=== PATIENT | female | born 1955 | race American Indian/Alaskan Native ===

== ENCOUNTER 2017-11-06 17:32 | Emergency (ER) | payer OTHER ==
[2017-11-06 18:07] VITALS: BP 134/57
[2017-11-06] MEDS ORDERED: TORADOL IM ONE (22:41)
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
== END 2017-11-06 23:55 | disposition home or self-care (01) ==
LOC: ED 17:32
DX: M54.5 Low back pain (principal); F17.200 Nicotine dependence, unspecified, uncomplicated; Z90.711 Acquired absence of uterus with remaining cervical stump; V43.52XA Car driver injured in collision with other type car in traffic accident, initial encounter; Y93.89 Activity, other specified; Y99.8 Other external cause status; Y92.488 Other paved roadways as the place of occurrence of the external cause
CPT/HCPCS: 72100; 96372; 99283; J1885

== ENCOUNTER 2020-07-19 21:21 | Emergency (ER) | payer OTHER ==
[2020-07-19] MEDS ORDERED: ACETAMINOPHEN 500 MG TAB PO ONE (21:26)
[2020-07-19 21:30] VITALS: BP 91/74
--- NOTE | 2020-07-19 21:32 | Emergency Department Report ---
ED Upper Extremity Inj HPI - General Stated Complaint: LEFT RING FINGER INJURY Source: patient Limitations: No Limitations - History of Present Illness Initial Comments: Patient is a 64-year-old -N[place]alese female with no past medical history presents to the ED with complaint of acute onset persistent severe left ring finger pain and swelling after she accidentally hit her left ring finger with a hammer when trying to repair a cabinet in her kitchen about 8 hours ago. Patient states that she thought the injury was not significant but the pain and swelling got worse subsequently. Patient states that she is unable to perform any active range of motion with the left ring finger because of severe pain. Patient denies dizziness, syncope, chest pain, shortness of breath, fall, heavy lifting, numbness and tingling or weakness of left hand or left ring finger. MD Complaint: Injury to:: left, hand (left hand, left ring finger pain swelling and pain), finger (left ring finger pain and swelling) -: Sudden, hour(s) (8) Other Extremity Injury: Fingers: Left (ring finger pain and swelling), Hand: Left (left hand pain and swelling) Other Injuries: none Handedness: right Place: home Severity scale (0 -10): 7 Improves With: none Worsens With: movement of extremity (left hand and ring finger) Context: direct blow, injury Associated Symptoms: denies other symptoms. denies: weakness, numbness, neck pain, nausea/vomiting, heard/felt popping sensat - Related Data Previous Rx's Medication Instructions Recorded Last Taken Type HYDROcodone/APAP 10-325 [Declo 1 each PO Q6HR PRN #20 tablet 12/15/13 Unknown Rx 10-325 mg TAB] HYDROcodone/APAP 5-325 [Declo 1 each PO Q6HR PRN #12 tablet 07/19/20 Unknown Rx 5/325] methOCARBAMOL [Robaxin TAB] 750 mg PO Q12H PRN #30 tablet 07/19/20 Unknown Rx Allergies Allergy/AdvReac Type Severity Reaction Status Date / Time aspirin Allergy Vomiting Verified 07/19/20 21:29 ED Review of Systems ROS: Stated complaint: LEFT RING FINGER INJURY Other details as noted in HPI Constitutional: denies: chills, fever Eyes: denies: eye pain, eye discharge, vision change ENT: denies: ear pain, throat pain Respiratory: denies: cough, shortness of breath, wheezing Cardiovascular: denies: chest pain, palpitations Endocrine: no symptoms reported Gastrointestinal: denies: abdominal pain, nausea, diarrhea Genitourinary: denies: urgency, dysuria, discharge Musculoskeletal: joint swelling (left ring finger pain and swelling), arthralgia (left hand and ring finger pain). denies: back pain Skin: denies: rash, lesions Neurological: denies: headache, weakness, paresthesias Psychiatric: denies: anxiety, depression Hematological/Lymphatic: denies: easy bleeding, easy bruising ED Past Medical Hx - Surgical History Additional Surgical History: partial hysterectomy, Right and left foot - Social History Smoking Status: Current Every Day Smoker Substance Use Type: Alcohol, Prescribed - Medications Home Medications: Home Medications Medication Instructions Recorded Confirmed Last Taken Type HYDROcodone/APAP 10-325 [Declo 1 each PO Q6HR PRN #20 tablet 12/15/13 Unknown Rx 10-325 mg TAB] HYDROcodone/APAP 5-325 [Declo 1 each PO Q6HR PRN #12 tablet 07/19/20 Unknown Rx 5/325] methOCARBAMOL [Robaxin TAB] 750 mg PO Q12H PRN #30 tablet 07/19/20 Unknown Rx ED Physical Exam - General General appearance: alert, in no apparent distress - Head Head exam: Present: atraumatic, normocephalic, normal inspection - Eye Eye exam: Present: normal appearance, PERRL, EOMI - ENT ENT exam: Present: normal exam, normal orophraynx, mucous membranes moist, TM's normal bilaterally, normal external ear exam - Neck Neck exam: Present: normal inspection, full ROM - Respiratory Respiratory exam: Present: normal lung sounds bilaterally. Absent: respiratory distress, wheezes, rales, rhonchi, chest wall tenderness, accessory muscle use, decreased breath sounds, other - Cardiovascular Cardiovascular Exam: Present: regular rate, normal rhythm, normal heart sounds. Absent: systolic murmur, diastolic murmur, rubs, gallop - GI/Abdominal GI/Abdominal exam: Present: soft, normal bowel sounds. Absent: distended, tenderness, guarding, rebound, hyperactive bowel sounds, hypoactive bowel sounds, organomegaly, mass - Extremities Exam Extremities exam: Present: normal inspection, full ROM (limited ROM of left ring finger due to pain and mild swelling), tenderness (Palpable left ring finger tenderness, mild swelling and limited ROM due to pain), normal capillary refill, joint swelling (left ringf finger). Absent: pedal edema, calf tenderness - Back Exam Back exam: Present: normal inspection, full ROM. Absent: tenderness, CVA tenderness (R), CVA tenderness (L), muscle spasm, paraspinal tenderness, vertebral tenderness - Neurological Exam Neurological exam: Present: alert, oriented X3, CN II-XII intact, normal gait, reflexes normal - Psychiatric Psychiatric exam: Present: normal affect, normal mood - Skin Skin exam: Present: warm, dry, intact, normal color. Absent: rash ED Course Vital Signs 07/19/20 21:28 Temperature 98.7 F Pulse Rate 74 Respiratory 18 Rate Blood Pressure 91/74 O2 Sat by Pulse 100 Oximetry ED Medical Decision Making - Radiology Data Radiology results: report reviewed, image reviewed Findings [facility] [address] [place] [address] XRay Report Signed Patient: AUTUMN GUSMAN MR#: [id number] 0008 : 1955 Acct:[id number] Age/Sex: 64 / F ADM Date: 07/19/20 Loc: ED Attending Dr: Ordering Physician: CHERRY ESPINOZA Date of Service: 07/19/20 Procedure(s): XR hand 3+V LT Accession Number(s): [id number] cc: CHERRY ESPINOZA Fluoro Time In Minutes: LEFT HAND 3 VIEW(S) INDICATION / CLINICAL INFORMATION: Left ring finger injury. COMPARISON: None available. FINDINGS: BONES / JOINT(S): There is a nondisplaced fracture of the ring finger middle phalanx along the ulnar aspect. No significant arthritis. SOFT TISSUES: Soft tissue edema about the ring finger is noted. ADDITIONAL FINDINGS: None. Signer Name: Lulu Hobbs MD Signed: 07/19/2020 10:08 PM Workstation Name: [id number] Transcribed By: SS Dictated By: LULU HOBBS Electronically Authenticated By: LULU HOBBS Signed Date/Time: 07/19/202207 DD/ 05 TD/TT: - Medical Decision Making This is a 64-year-old -N[place]alese female with no past medical history presents to the ED with complaint of acute onset persistent severe left ring finger pain and swelling after she accidentally hit her left ring finger with a hammer when trying to repair a cabinet in her kitchen about 8 hours ago. Patient states that she thought the injury was not significant but the pain and swelling got worse subsequently. Patient states that she is unable to perform any active range of motion with the left ring finger because of severe pain. In the ED, patient is alert and oriented x3 and is not in distress with normal vital signs. Patient was treated for pain in the ED and left hand x-ray showed a nondisplaced fracture of the ring finger middle phalanx along the ulnar aspect. No significant arthritis. There are however soft tissue edema about the ring finger is noted. The left ring finger was splinted with a finger splint, and the patient will discharge home on pain medications and given a referral to the orthopedic surgeon on-call Dr. Wolf for follow-up. Patient was advised to contact Dr. Wolf's office first thing in the morning on Saturday, July 19, 2020 to schedule a follow-up appointment. Patient was advised return to the ED immediately if symptoms get worse. - Differential Diagnosis Finger fracture; hand contusion; hand sprain; finger contusion Critical care attestation.: If time is entered above; I have spent that time in minutes in the direct care of this critically ill patient, excluding procedure time. ED Disposition Clinical Impression: Contusion of left hand including fingers Qualifiers: Encounter type: initial encounter Qualified Code(s): S60.222A - Contusion of left hand, initial encounter Closed nondisplaced fracture of phalanx of left ring finger Qualifiers: Encounter type: initial encounter Phalanx: middle Qualified Code(s): S62.655A - Nondisplaced fracture of middle phalanx of left ring finger, initial encounter for closed fracture Disposition: DC-01 TO HOME OR SELFCARE Is pt being admited?: No Does the pt Need Aspirin: No Condition: Stable Instructions: Finger Fracture, Adult, [id number], Hand Contusion, [id number] Additional Instructions: The x-ray of your left hand shows slightly displaced fracture of the middle of your left ring finger. Therefore take medications as needed for pain, drink plenty of fluids and follow-up with the orthopedic surgeon on-call Dr. Wolf for further evaluation. Contact Dr. Wolf's office first thing this morning Sunday, July 19, 2020 to schedule a follow-up appointment. Return to the ED immediately if symptoms get worse. Prescriptions: HYDROcodone/APAP 5-325 [Declo 5/325] 1 each PO Q6HR PRN #12 tablet PRN Reason: Pain methOCARBAMOL [Robaxin TAB] 750 mg PO Q12H PRN #30 tablet PRN Reason: Muscle Spasm Referrals: EVANGELISTA WOLF MD [Staff Physician] - 3-5 Days Time of Disposition: 23:07 Print Language: BELARUSIAN
--- NOTE | 2020-07-19 22:13 | XRay Report ---
LEFT HAND 3 VIEW(S) INDICATION / CLINICAL INFORMATION: Left ring finger injury. COMPARISON: None available. FINDINGS: BONES / JOINT(S): There is a nondisplaced fracture of the ring finger middle phalanx along the ulnar aspect. No significant arthritis. SOFT TISSUES: Soft tissue edema about the ring finger is noted. ADDITIONAL FINDINGS: None. Signer Name: Daniel Hobbs MD Signed: 07/19/2020 10:08 PM Workstation Name: [id number]
== END 2020-07-19 23:35 | disposition home or self-care (01) ==
LOC: ED 21:21
DX: S62.655A Nondisplaced fracture of middle phalanx of left ring finger, initial encounter for closed fracture (principal); S60.222A Contusion of left hand, initial encounter; F17.200 Nicotine dependence, unspecified, uncomplicated; Z79.899 Other long term (current) drug therapy; Z88.8 Allergy status to other drugs, medicaments and biological substances; Z90.710 Acquired absence of both cervix and uterus; Z98.890 Other specified postprocedural states; W22.8XXA Striking against or struck by other objects, initial encounter; Y93.89 Activity, other specified; Y92.009 Unspecified place in unspecified non-institutional (private) residence as the place of occurrence of the external cause; Y99.8 Other external cause status